=== PATIENT | female | born 1980 | race Caucasian/White ===

== ENCOUNTER 2017-04-09 06:51 | Emergency (ER) | payer BC, OTHER ==
[2017-04-09 07:46] LABS: ABSOLUTE BASOPHILS # (AUTO) 0.1 10^3/uL (0.0-0.2); ABSOLUTE EOSINOPHILS # (AUTO) 0.1 10^3/uL (0.0-0.6); ABSOLUTE LYMPHOCYTES (AUTO) 1.5 10^3/uL (0.5-4.7); ABSOLUTE MONOCYTES (AUTO) 0.6 10^3/uL (0.1-1.4); ABSOLUTE NEUT (AUTO) 6.5 10^3/uL (1.7-8.2); EOSINOPHILS % (AUTO) 1.4 % (0-6); HEMATOCRIT 39.4 % (36.0-47.0); HEMOGLOBIN 13.8 g/dL (12.0-15.5); LYMPHOCYTES % (AUTO) 16.7 % (13-45); MEAN CORPUSCULAR HEMOGLOBIN 31.8 pg (27.0-33.4); MEAN CORPUSCULAR VOLUME 91 fl (80-97); MONOCYTES % (AUTO) 6.9 % (3-13); RED BLOOD COUNT 4.33 10^6/uL (3.72-5.28); RED CELL DISTRIBUTION WIDTH 12.9 % (11.5-14.0); WHITE BLOOD COUNT 8.7 10^3/uL (4.0-10.5)
--- NOTE | 2017-04-09 08:15 | ER Document Report ---
ED General - General Chief Complaint: Vaginal Bleeding Stated Complaint: VAGINAL BLEEDING Time Seen by Provider: 04/09/17 07:08 Mode of Arrival: Ambulatory Information source: Patient Notes: 36-year-old female 3 P1 only 12-1/2 weeks with twins presents with complaints of vaginal bleeding. Patient denies any blood clots notes it is just bright red blood. Patient did have bleeding at 8 weeks which was secondary to a progesterone cream she was using Admit to some abdominal cramping, type is O+ - HPI Onset: Yesterday Onset/Duration: Sudden Quality of pain: Cramping Severity: Mild Pain Level: 1 Associated symptoms: Other Exacerbated by: Denies Relieved by: Denies Similar symptoms previously: Yes Recently seen / treated by doctor: Yes - Was seen by TELEPHONE DIAPHRAGM ASSEMBLER 4 days prior - Related Data Allergies/Adverse Reactions: No Known Allergies Allergy (Unverified 04/09/17 09:24) Past Medical History - Social History Smoking Status: Never Smoker Cigarette use (# per day): No Chew tobacco use (# tins/day): No Smoking Education Provided: No Frequency of alcohol use: None Drug Abuse: None Family History: Reviewed & Not Pertinent Renal/ Medical History: Denies: Hx Peritoneal Dialysis Review of Systems - Review of Systems Notes: PHYSICAL EXAMINATION: GENERAL: Well-appearing, well-nourished and in no acute distress. HEAD: Atraumatic, normocephalic. EYES: Pupils equal round and reactive to light, extraocular movements intact, conjunctiva are normal. ENT: Nares patent, oropharynx clear without exudates. Moist mucous membranes. NECK: Normal range of motion, supple without lymphadenopathy LUNGS: Breath sounds clear to auscultation bilaterally and equal. No wheezes rales or rhonchi. HEART: Regular rate and rhythm without murmurs ABDOMEN: Soft, nontender, nondistended abdomen. No guarding, no rebound. No masses appreciated. Female : deferred Musculoskeletal: Normal range of motion, no pitting or edema. No cyanosis. NEUROLOGICAL: Cranial nerves grossly intact. Normal speech, normal gait. Normal sensory, motor exams PSYCH: Normal mood, normal affect. SKIN: Warm, Dry, normal turgor, no rashes or lesions noted. Physical Exam - Vital signs Vitals: Temp Pulse Resp BP Pulse Ox 98.3 F 101 H 18 116/65 100 04/09/17 06:55 04/09/17 06:55 04/09/17 06:55 04/09/17 06:55 04/09/17 06:55 Course - Re-evaluation Re-evalutation: 04/09/17 08:01 Patient will be sent immediately for ultrasound, RhoGam is not needed at this time 04/09/17 09:44 Ultrasound is consistent with a viable 12 week and 12 week 4 day with good heart tones. Patient instructed on pelvic rest, she has an appointment with her TELEPHONE DIAPHRAGM ASSEMBLER at 1:00 and report was given to patient After performing a Medical Screening Examination, I estimate there is LOW risk for ACUTE APPENDICITIS, BOWEL OBSTRUCTION, ACUTE CHOLECYSTITIS, PERFORATED DIVERTICULITIS, INCARCERATED HERNIA, PANCREATITIS, PELVIC INFLAMMATORY DISEASE, PERFORATED ULCER, ECTOPIC , or TUBO-OVARIAN ABSCESS, thus I consider the discharge disposition reasonable. Also, there is no evidence or peritonitis , sepsis, or toxicity. I have reevaluated this patient multiple times and no significant life threatening changes are noted. The patient and I have discussed the diagnosis and risks, and we agree with discharging home with close follow-up with the understanding that symptoms and presentations can change. We also discussed returning to the Emergency Department immediately if new or worsening symptoms occur. We have discussed the symptoms which are most concerning (e.g., bloody stool, fever, changing or worsening pain, vomiting) that necessitate immediate return. - Vital Signs Vital signs: Temp Pulse Resp BP Pulse Ox 98.3 F 101 H 18 116/65 100 04/09/17 06:55 04/09/17 06:55 04/09/17 06:55 04/09/17 06:55 04/09/17 06:55 - Laboratory Result Diagrams: 04/09/17 07:35 04/09/17 07:35 Laboratory results interpreted by me: 04/09/17 08:05 Urine Blood LARGE H - Diagnostic Test Radiology reviewed: Image reviewed, Reports reviewed - Viable is noted Discharge - Discharge Clinical Impression: Threatened miscarriage Twin Qualifiers: Multiple gestation type: unspecified Trimester: first trimester Qualified Code( s): O30.001 - Twin , unspecified number of placenta and unspecified number of amniotic sacs, first trimester Condition: Stable Disposition: HOME, SELF-CARE Instructions: Threatened Miscarriage ([facility]) Additional Instructions: Please follow-up with your appointment today return immediately for any other concerns
[2017-04-09 08:29] LABS: APPEARANCE,URINE CLEAR; BILIRUBIN,URINE NEGATIVE (NEGATIVE); GLUCOSE, URINE NEGATIVE (NEGATIVE); KETONES,URINE NEGATIVE (NEGATIVE); LEUKOCYTE ESTERASE,URINE NEGATIVE (NEGATIVE); NITRITE,URINE NEGATIVE (NEGATIVE); PROTEIN,URINE NEGATIVE (NEGATIVE); URINE SPECIFIC GRAVITY 1.003; UROBILINOGEN,URINE NEGATIVE mg/dL (<2.0)
--- NOTE | 2017-04-09 09:31 | RADIOLOGY REPORT (SQ) ---
EXAM DESCRIPTION: U/S [id number] TRNABD 1GES W/ODOP; U/S 25739 + EACH ADDIT GEST COMPLETED DATE/TIME: 04/09/2017 9:13 am REASON FOR STUDY: + preg vag bleed ; VAG BLEEDING COMPARISON: None. TECHNIQUE: Transabdominal static and realtime grayscale images acquired of the pelvis. Additional se lected spectral and color Doppler images recorded. All images stored on PACs. bHCG: Not applicable. LIMITATIONS: None. FINDINGS: TWIN : TWIN A: EGA: 12 week. VASILIY: 10/22/2017. FHR: 178 beats per minute. TWIN B: EGA: 12 week 4 day. VASILIY: 10/18/2017. FHR: 165 beats per minute. TIM: Adequate amount. PLACENTA: Posterior. CERVICAL LENGTH: 3.16 cm. Closed. UTERUS: No masses. RIGHT ADNEXA: Ovary not identified. No adnexal free fluid. No adnexal masses. LEFT ADNEXA: Ovary not identified. No adnexal free fluid. No adnexal masses. FREE FLUID: None. OTHER: No other significant finding. IMPRESSION: LIVING TWIN INTRAUTERINE . ESTIMATED GESTATIONAL AGE:12 WEEK 0 DAY AND 12 WEEK 4 DAY. Trimester of : First trimester - 0 to 13 weeks. TECHNICAL DOCUMENTATION: JOB ID: [id number]- All Rights Reserved
--- NOTE | 2017-04-09 09:31 | RADIOLOGY REPORT (SQ) ---
EXAM DESCRIPTION: U/S [id number] TRNABD 1GES W/ODOP; U/S [id number] + EACH ADDIT GEST COMPLETED DATE/TIME: 04/09/2017 9:13 am REASON FOR STUDY: + preg vag bleed ; VAG BLEEDING COMPARISON: None. TECHNIQUE: Transabdominal static and realtime grayscale images acquired of the pelvis. Additional se lected spectral and color Doppler images recorded. All images stored on PACs. bHCG: Not applicable. LIMITATIONS: None. FINDINGS: TWIN : TWIN A: EGA: 12 week. VASILIY: 10/22/2017. FHR: 178 beats per minute. TWIN B: EGA: 12 week 4 day. VASILIY: 10/18/2017. FHR: 165 beats per minute. TIM: Adequate amount. PLACENTA: Posterior. CERVICAL LENGTH: 3.16 cm. Closed. UTERUS: No masses. RIGHT ADNEXA: Ovary not identified. No adnexal free fluid. No adnexal masses. LEFT ADNEXA: Ovary not identified. No adnexal free fluid. No adnexal masses. FREE FLUID: None. OTHER: No other significant finding. IMPRESSION: LIVING TWIN INTRAUTERINE . ESTIMATED GESTATIONAL AGE:12 WEEK 0 DAY AND 12 WEEK 4 DAY. Trimester of : First trimester - 0 to 13 weeks. TECHNICAL DOCUMENTATION: JOB ID: [id number]- All Rights Reserved
[2017-04-09 10:01] VITALS: BP 115/68
== END 2017-04-09 09:55 | disposition home or self-care (01) ==
LOC: ER 06:51
DX: O20.0 Threatened abortion (principal); O30.001 Twin pregnancy, unspecified number of placenta and unspecified number of amniotic sacs, first trimester; O46.91 Antepartum hemorrhage, unspecified, first trimester; Z3A.12 12 weeks gestation of pregnancy
CPT/HCPCS: 36415; 76801; 76802; 81001; 85025; 99284

== ENCOUNTER → 2020-12-11 | Outpatient (CLI) | payer OTHER ==
[~2020-12-11] MED LIST: COVID-19 VACCINE (PFIZER)/PF 30 MCG/0.3 ML VIAL IM ONE; EPINEPHRINE INJ/PF 1 MG/1 ML AMPULE IM PRN
== END ==
LOC: EMPHEALTH 14:58
PROVIDERS: ATTEND Internal Medicine
DX: Z23 Encounter for immunization (principal)
CPT/HCPCS: 91300